=== PATIENT | male | born 1960 | race Caucasian/White ===

== ENCOUNTER 2022-06-30 08:25 | Outpatient (CLI) | payer BC ==
[2022-06-30] MEDS ORDERED: Iopamidol 300 61% 100 ML VIAL FS ONE (09:28)
== END 2022-06-30 08:26 | disposition home or self-care (01) ==
LOC: CSHCT 08:25
PROVIDERS: ATTEND Otolaryngology Plastic Surgery within the Head & Neck
DX: K11.8 Other diseases of salivary glands (principal); J39.2 Other diseases of pharynx; M47.12 Other spondylosis with myelopathy, cervical region; M48.02 Spinal stenosis, cervical region; J34.89 Other specified disorders of nose and nasal sinuses; J34.2 Deviated nasal septum
CPT/HCPCS: 70491; 82565; Q9967

== ENCOUNTER 2023-04-08 08:53 | Outpatient (CLI) | payer BC ==
[2023-04-08] MEDS ORDERED: Iopamidol 300 61% 100 ML VIAL FS ONE (11:59)
== END 2023-04-08 08:54 | disposition home or self-care (01) ==
LOC: CSHCT 08:53
PROVIDERS: ATTEND Internal Medicine Hematology & Oncology
DX: C07 Malignant neoplasm of parotid gland (principal); C44.42 Squamous cell carcinoma of skin of scalp and neck; I77.810 Thoracic aortic ectasia; K57.30 Diverticulosis of large intestine without perforation or abscess without bleeding; M41.9 Scoliosis, unspecified; M47.814 Spondylosis without myelopathy or radiculopathy, thoracic region
CPT/HCPCS: 71260; 74177; 82565

== ENCOUNTER 2023-12-10 07:05 | Outpatient (CLI) | payer BC ==
[2023-12-10] MEDS ORDERED: Iopamidol 300 61% 100 ML VIAL FS ONE (09:52)
== END 2023-12-10 07:06 | disposition home or self-care (01) ==
LOC: CSHCT 07:05
PROVIDERS: ATTEND Radiology Radiation Oncology
DX: C07 Malignant neoplasm of parotid gland (principal); R91.1 Solitary pulmonary nodule
CPT/HCPCS: 36415; 70491; 71260; 82565

== ENCOUNTER 2024-09-28 07:06 | Outpatient (CLI) | payer BC ==
[2024-09-28 08:08] LABS: Estimated GFR - POC 68.0
[2024-09-28] MEDS ORDERED: Iopamidol 300 61% 100 ML VIAL FS ONE (10:33)
== END 2024-09-28 07:07 | disposition home or self-care (01) ==
LOC: CSHCT 07:06
PROVIDERS: ATTEND Radiology Radiation Oncology
DX: R91.1 Solitary pulmonary nodule (principal); J98.4 Other disorders of lung
CPT/HCPCS: 71260; 82565